=== PATIENT | female | born 1975 | race Caucasian/White ===

== ENCOUNTER 2017-04-06 22:36 | Emergency (ER) | payer BC ==
[~2017-04-06] VITALS: Ht 152.4 cm; Wt 77.1 kg
[2017-04-06 22:59] VITALS: BP_SYST 133
--- NOTE | 2017-04-06 23:03 | NUR ---
Patient to ER bed 8 to gown for evaluation. Side rails up. Report given to Matt GAUTAM.
--- NOTE | 2017-04-06 23:05 | NUR ---
Patient arrived to ED a/o x 4 with c/o of foreign body in vagina. Patient reports having intercourse with tampon still in place. Patient states,"I forgot I had it in". Denies pain. Reports constant pressure to site. No blood or obvious trauma to site. Afebrile. Denies chills. Will continue to monitor.
--- NOTE | 2017-04-06 23:10 | NUR ---
ED MD Burger at bedside for medical evaluation.
--- NOTE | 2017-04-06 23:17 | NUR ---
Pelvic exam performed by Dr. Burger with [facility] Scribe at bedside for entire examination. Patient tolerated procedure well. Patient assisted to position of comfort after examination.
[2017-04-06 23:50] VITALS: BP_SYST 131
--- NOTE | 2017-04-06 23:50 | NUR ---
Patient given written and verbal discharge instructions and verbalizes understanding. ER MD discussed with patient the results and treatment provided. Patient in stable condition. ID arm band removed. Rx of clindamycin given. Patient educated on pain management and to follow up with PMD. Pain Scale 0/10. Opportunity for questions provided and answered.
== END 2017-04-06 23:50 | disposition home or self-care (01) ==
LOC: SED 22:36
DX: T19.2XXA Foreign body in vulva and vagina, initial encounter (principal); X58.XXXA Exposure to other specified factors, initial encounter; Y93.89 Activity, other specified; Y92.89 Other specified places as the place of occurrence of the external cause; Y99.8 Other external cause status
CPT/HCPCS: 99284